=== PATIENT | male | born 1990 | race Two or more races ===

== ENCOUNTER 2019-09-09 21:30 | Emergency (ER) | payer OTHER ==
[~2019-09-09] VITALS: Ht 188 cm; Wt 149.7 kg
[2019-09-09] MEDS ORDERED: LEVOTHYROXINE25 MCG (21:42)
== END 2019-09-09 22:46 | disposition home or self-care (01) ==
LOC: ER 21:30
DX: J02.9 Acute pharyngitis, unspecified (principal)